=== PATIENT | female | born 1980 | race Caucasian/White ===

== ENCOUNTER 2016-08-04 18:08 | Emergency (ER) | payer BC ==
[2016-08-04 19:04] VITALS: BP 96/54
--- NOTE | 2016-08-04 19:45 | UC ---
Throat Pain/Nasal Sixto HPI - HPI Summary HPI Summary: Patient has had 1 month of sinus congsetion, chills and hot sweats. - History of Current Complaint Chief Complaint: UCGeneralIllness Stated Complaint: SINUSES Time Seen by Provider: 08/04/16 19:14 Hx Obtained From: Patient Hx Last Menstrual Period: ABLATION ?: No Onset/Duration: Gradual Onset, Lasting Weeks Severity: Severe Associated Signs & Symptoms: Positive: Dysphagia, Wheezing, Sinus Discomfort, Nasal Discharge, Fever - Epiglottits Risk Factors Epiglottis Risk Factors: Negative - Allergies/Home Medications Allergies/Adverse Reactions: Allergies Allergy/AdvReac Type Severity Reaction Status Date / Time Penicillins Allergy Intermediate See Comment Verified 11/25/12 21:11 Sulfa Antibiotics Allergy Swelling Verified 08/04/16 19:05 Of Face,Lips,& Throat Home Medications: Home Medications Famotidine TAB* [Pepcid 20 MG TAB*] 20 mg PO BID 08/04/16 [History Confirmed 06/21] Pseudoephedrine HCl [Sudafed Nasal Decongestan] 30 mg PO Q4H PRN 08/04/16 [ History Confirmed 08/04/16] guaiFENesin ER TAB [Mucinex*] 600 mg PO BID PRN 08/04/16 [History Confirmed 06/21] PMH/Surg Hx/FS Hx/Imm Hx Previously Healthy: Yes - Surgical History Surgical History: Yes Surgery Procedure, Year, and Place: 1 , tonsilectomy. ablation - Family History Known Family History: Positive: Hypertension, Diabetes, Renal Disease - Social History Alcohol Use: None Substance Use Type: None Smoking Status (MU): Never Smoked Tobacco Review of Systems Constitutional: Fever, Chills, Fatigue Skin: Negative Eyes: Negative ENT: Sore Throat, Ear Ache, Nasal Discharge Respiratory: Shortness Of Breath, Cough Cardiovascular: Negative Gastrointestinal: Negative Genitourinary: Negative Motor: Negative Neurovascular: Negative Musculoskeletal: Myalgia Neurological: Headache Psychological: Negative All Other Systems Reviewed And Are Negative: Yes Physical Exam Triage Information Reviewed: Yes Appearance: Well-Nourished, Ill-Appearing, Pain Distress Vital Signs: Initial Vital Signs Temp 99.6 F 08/04/16 19:00 Pulse 102 08/04/16 19:00 Resp 16 08/04/16 19:00 BP 96/54 08/04/16 19:00 Pulse Ox 99 08/04/16 19:00 Vital Signs Reviewed: Yes Eye Exam: Normal Eyes: Positive: Conjunctiva Inflamed ENT: Positive: Pharyngeal erythema - with posterior exudate, TM bulging, TM red Dental Exam: Normal Neck exam: Normal Neck: Positive: Supple, Nontender, No Lymphadenopathy Respiratory Exam: Normal Respiratory: Positive: Chest non-tender, Lungs clear, Normal breath sounds Cardiovascular Exam: Normal Cardiovascular: Positive: No Murmur, Pulses Normal, Tachycardia Abdominal Exam: Normal Abdomen Description: Positive: Nontender, No Organomegaly, Soft Bowel Sounds: Positive: Present Musculoskeletal Exam: Normal Musculoskeletal: Positive: Strength Intact, ROM Intact, No Edema Neurological Exam: Normal Neurological: Positive: Alert, Muscle Tone Normal Psychological Exam: Normal Skin: Positive: Other - face is flushed Throat Pain/Nasal Course/Dx - Course Course Of Treatment: hx obtained, exam performed, meds prescribed for sinusitis - Differential Dx/Diagnosis Differential Diagnosis/HQI/PQRI: Influenza, Laryngitis, Otitis Media, Pharyngitis, Sinusitis, Tonsillitis, URI Provider Diagnoses: sinusitis Discharge - Discharge Plan Condition: Stable Disposition: HOME Patient Education Materials: Sinusitis (ED) Additional Instructions: take the medication as prescribed. Get plenty of rest and increase fluid intake. ibuprofen and warm compresses to help allieviate sinus pressure.
[2016-08-04] MEDS ORDERED: Cephalexin CAP* 500 MG PO ONE (19:52)
== END 2016-08-04 20:11 | disposition home or self-care (01) ==
LOC: UCCORT 18:08
DX: J32.9 Chronic sinusitis, unspecified (principal); Z88.0 Allergy status to penicillin; Z88.2 Allergy status to sulfonamides
CPT/HCPCS: 99202; A9270-GY; G0463

== ENCOUNTER 2016-10-21 11:25 | Emergency (ER) | payer OTHER ==
[2016-10-21 12:15] VITALS: BP 109/78
--- NOTE | 2016-10-21 12:18 | UC ---
Throat Pain/Nasal Sixto HPI - HPI Summary HPI Summary: complaint of nasal congestion and cough non productive cough tenderness in face and forehead for the last 2 weeks bilateral ear pain frequent headaches mild sore throat intermittently denies fever and chills taking sudafed and mucinex and using nettipot 2xday without relief - History of Current Complaint Chief Complaint: UCRespiratory Stated Complaint: sinus complaint Time Seen by Provider: 10/21/16 12:14 Hx Obtained From: Patient Hx Last Menstrual Period: ABLATION - Allergies/Home Medications Allergies/Adverse Reactions: Allergies Allergy/AdvReac Type Severity Reaction Status Date / Time Penicillins Allergy Intermediate See Comment Verified 10/21/16 12:15 Ciprofloxacin Allergy Hives Verified 10/21/16 12:15 Sulfa Antibiotics Allergy Swelling Verified 10/21/16 12:15 Of Face,Lips,& Throat Home Medications: Home Medications Cetirizine* [ZyrTEC 10 MG TAB*] 10 mg PO DAILY 10/21/16 [History Confirmed 10/21] PMH/Surg Hx/FS Hx/Imm Hx Previously Healthy: Yes - seasonal allergies GI/ History: Gastroesophageal Reflux - Surgical History Surgical History: Yes Surgery Procedure, Year, and Place: 1 , tonsilectomy. ablation - Family History Known Family History: Positive: Hypertension, Diabetes, Renal Disease - Social History Occupation: Employed Full-time Lives: With Family Alcohol Use: None Substance Use Type: None Smoking Status (MU): Never Smoked Tobacco Review of Systems Constitutional: Negative Skin: Negative Eyes: Negative ENT: Sore Throat, Ear Ache, Nasal Discharge, Sinus Congestion, Sinus Pain/ Tenderness Respiratory: Cough Cardiovascular: Negative Gastrointestinal: Negative Genitourinary: Negative Motor: Negative Neurovascular: Negative Musculoskeletal: Negative Neurological: Negative Psychological: Negative All Other Systems Reviewed And Are Negative: Yes Physical Exam Triage Information Reviewed: Yes Appearance: No Pain Distress, Well-Nourished, Obese Vital Signs: Initial Vital Signs Temp 98.6 F 10/21/16 12:12 Pulse 92 10/21/16 12:12 Resp 16 10/21/16 12:12 BP 109/78 10/21/16 12:12 Pulse Ox 99 10/21/16 12:12 Vital Signs Reviewed: Yes Eyes: Positive: Conjunctiva Clear ENT: Positive: Pharyngeal erythema, Nasal congestion, Nasal drainage, TM bulging , Other: - frontal and maxillary sinus tenderness. Negative: TM red Neck: Positive: No Lymphadenopathy Respiratory: Positive: Lungs clear, Normal breath sounds, No respiratory distress Cardiovascular: Positive: RRR, No Murmur Abdomen Description: Positive: Nontender, Soft Bowel Sounds: Positive: Present Musculoskeletal Exam: Normal Neurological: Positive: Alert Psychological Exam: Normal Skin Exam: Normal Throat Pain/Nasal Course/Dx - Course Course Of Treatment: exam completed. will treat for sinusitis secondary to seasonal allergies- will rx for doxycycline and flonase- followup with PCP - Differential Dx/Diagnosis Provider Diagnoses: sinusitis. seasonal allergies Discharge - Discharge Plan Condition: Stable Disposition: HOME Prescriptions: DOXYcycline CAP(*) [DOXYcycline 100MG CAP(*)] 100 mg PO BID #20 cap Fluticasone NASAL SPRAY 50MCG* [Flonase NASAL SPRAY 50MCG*] 2 spray BOTH NARES DAILY #1 btl Patient Education Materials: Sinusitis (ED), Allergies (ED) Referrals: MARCIA Godoy [Primary Care Provider] - Additional Instructions: Please start antibiotic and flonase as directed Increase fluids and rest Take acetaminophen or ibuprofen for fever or pain Please review your discharge instructions. If your symptoms do not improve please call your primary care provider or return to urgent care.
== END 2016-10-21 13:07 | disposition home or self-care (01) ==
LOC: UCCORT 11:25
DX: J32.9 Chronic sinusitis, unspecified (principal); J30.2 Other seasonal allergic rhinitis; K21.9 Gastro-esophageal reflux disease without esophagitis; E66.9 Obesity, unspecified; Z88.1 Allergy status to other antibiotic agents; Z88.0 Allergy status to penicillin; Z88.2 Allergy status to sulfonamides
CPT/HCPCS: 99212; G0463

== ENCOUNTER 2016-12-25 11:02 | Emergency (ER) | payer OTHER ==
[2016-12-25 13:01] VITALS: BP 110/65
--- NOTE | 2016-12-25 13:24 | UC ---
Throat Pain/Nasal Sixto HPI - HPI Summary HPI Summary: Sinus congestion for several weeks. she has hx of sinusitis. she has been trying netti pot without help. now having sinus pain. - History of Current Complaint Chief Complaint: UCRespiratory Stated Complaint: SINUS Time Seen by Provider: 12/25/16 12:56 Hx Obtained From: Patient Hx Last Menstrual Period: ABLATION Onset/Duration: Gradual Onset, Lasting Weeks Severity: Moderate Cough: None Associated Signs & Symptoms: Positive: Sinus Discomfort, Nasal Discharge. Negative: Fever, Vomiting, Rash Related History: Seasonal Allergies - Epiglottits Risk Factors Epiglottis Risk Factors: Negative - Allergies/Home Medications Allergies/Adverse Reactions: Allergies Allergy/AdvReac Type Severity Reaction Status Date / Time Penicillins Allergy Intermediate See Comment Verified 12/25/16 12:56 Ciprofloxacin Allergy Hives Verified 12/25/16 12:56 Sulfa Antibiotics Allergy Swelling Verified 12/25/16 12:56 Of Face,Lips,& Throat PMH/Surg Hx/FS Hx/Imm Hx Previously Healthy: No - sinusitis. seasonal allergies. - Surgical History Surgical History: Yes Surgery Procedure, Year, and Place: 1 , tonsilectomy. ablation - Family History Known Family History: Positive: Hypertension, Diabetes, Renal Disease - Social History Lives: With Family Alcohol Use: None Substance Use Type: None Smoking Status (MU): Never Smoked Tobacco - Immunization History Most Recent Influenza Vaccination: Not the Season Review of Systems ENT: Sinus Congestion, Sinus Pain/Tenderness All Other Systems Reviewed And Are Negative: Yes Physical Exam Triage Information Reviewed: Yes Vital Signs: Initial Vital Signs Temp 98.1 F 12/25/16 12:55 Pulse 88 12/25/16 12:55 Resp 16 12/25/16 12:55 BP 110/65 12/25/16 12:55 Pulse Ox 100 12/25/16 12:55 Vital Signs Reviewed: Yes Eye Exam: Normal ENT: Positive: Pharynx normal, Nasal congestion, TMs normal. Negative: Pharyngeal erythema, Tonsillar swelling, Tonsillar exudate, Trismus Neck exam: Normal Respiratory Exam: Normal Cardiovascular Exam: Normal Abdominal Exam: Normal Musculoskeletal Exam: Normal Neurological Exam: Normal Psychological Exam: Normal Skin Exam: Normal Throat Pain/Nasal Course/Dx - Differential Dx/Diagnosis Provider Diagnoses: sinusitis Discharge - Discharge Plan Condition: Good Disposition: HOME Prescriptions: DOXYcycline CAP(*) [DOXYcycline 100MG CAP(*)] 100 mg PO BID #20 cap Patient Education Materials: Sinusitis (ED) Referrals: MARCIA Godoy [Primary Care Provider] - Additional Instructions: Continue nasal irrigation and start decongestants as well.
== END 2016-12-25 13:42 | disposition home or self-care (01) ==
LOC: UCCORT 11:02
DX: J32.9 Chronic sinusitis, unspecified (principal); Z88.1 Allergy status to other antibiotic agents; Z88.0 Allergy status to penicillin; Z88.2 Allergy status to sulfonamides
CPT/HCPCS: 99212; G0463

== ENCOUNTER 2017-01-20 16:41 | Emergency (ER) | payer BC, OTHER ==
--- NOTE | 2017-01-20 17:29 | UC ---
Complaint Female HPI <Newton Deras - Last Filed: 01/24/17 23:30> - HPI Summary HPI Summary: few days of dysuria some hematuria noted--no fevers nausea vomiting or back pain - History Of Current Complaint Hx Obtained From: Patient Hx Last Menstrual Period: ABLATION ?: No Onset/Duration: Sudden Onset, Lasting Days Timing: Constant Severity Initially: Mild Severity Currently: Mild Character: Burning Aggravating Factor(s): Urination Associated Signs And Symptoms: Positive: Negative <Paris Romero - Last Filed: 01/28/17 11:38> - History Of Current Complaint Chief Complaint: UCGU Stated Complaint: UTI COMPLAINT Time Seen by Provider: 01/20/17 17:28 - Allergies/Home Medications Allergies/Adverse Reactions: Allergies Allergy/AdvReac Type Severity Reaction Status Date / Time Penicillins Allergy Intermediate See Comment Verified 01/20/17 17:31 Ciprofloxacin Allergy Hives Verified 01/20/17 17:31 Sulfa Antibiotics Allergy Swelling Verified 01/20/17 17:31 Of Face,Lips,& Throat PMH/Surg Hx/FS Hx/Imm Hx Previously Healthy: No GI/ History: Gastroesophageal Reflux - Surgical History Surgical History: Yes Surgery Procedure, Year, and Place: 1 , tonsilectomy. ablation - Family History Known Family History: Positive: Hypertension, Diabetes, Renal Disease - Social History Occupation: Employed Full-time Lives: With Family Alcohol Use: None Substance Use Type: None Smoking Status (MU): Never Smoked Tobacco - Immunization History Most Recent Influenza Vaccination: Not the 2017/2017 Season <Paris Romero - Last Filed: 01/28/17 11:38> Review of Systems Constitutional: Negative Skin: Negative Eyes: Negative ENT: Negative Respiratory: Negative Cardiovascular: Negative Gastrointestinal: Negative Genitourinary: Negative, Dysuria, Hematuria Motor: Negative Neurovascular: Negative Musculoskeletal: Negative Neurological: Negative Psychological: Negative Is Patient Immunocompromised?: No All Other Systems Reviewed And Are Negative: Yes <Paris Romero - Last Filed: 01/28/17 11:38> Physical Exam Vital Signs: Initial Vital Signs Temp 97.9 F 01/20/17 17:27 Pulse 88 01/20/17 17:27 Resp 16 01/20/17 17:27 BP 110/70 01/20/17 17:27 Pulse Ox 100 01/20/17 17:27 <Newton Deras - Last Filed: 01/24/17 23:30> Triage Information Reviewed: Yes Appearance: Well-Appearing, No Pain Distress, Well-Nourished Vital Signs Reviewed: Yes Eye Exam: Normal Eyes: Positive: Conjunctiva Clear ENT Exam: Normal ENT: Positive: Normal ENT inspection, Hearing grossly normal. Negative: Nasal congestion, Nasal drainage, Trismus, Muffled/hoarse voice Dental Exam: Normal Neck exam: Normal Neck: Positive: Supple, Nontender Respiratory Exam: Normal Respiratory: Positive: Chest non-tender, No respiratory distress, No accessory muscle use Cardiovascular Exam: Normal Cardiovascular: Positive: RRR, Pulses Normal, Brisk Capillary Refill Abdominal Exam: Normal Abdomen Description: Positive: Nontender, No Organomegaly, Soft. Negative: CVA Tenderness (R), CVA Tenderness (L) Musculoskeletal Exam: Normal Musculoskeletal: Positive: Strength Intact, ROM Intact Neurological Exam: Normal Neurological: Positive: Alert, Muscle Tone Normal Psychological Exam: Normal Skin Exam: Normal <Paris Romero - Last Filed: 01/28/17 11:38> Diagnostics - Laboratory Diagnostic Studies Completed/Ordered: ua +2 blood, trace leukoesterase, u preg ( -) <Paris Romero - Last Filed: 01/28/17 11:38> Complaint Female Dx - Course Course Of Treatment: culture urine, increase fluids, kefle, pyridium, follow with pcp - Differential Dx/Diagnosis Differential Diagnosis/HQI/PQRI: , Renal Colic, Ureteral Stone, Urinary Tract Infection Provider Diagnoses: UTI <Paris Romero - Last Filed: 01/28/17 11:38> Discharge <Newton Deras - Last Filed: 01/24/17 23:30> <Paris Romero - Last Filed: 01/28/17 11:38> - Discharge Plan Condition: Stable Disposition: HOME Prescriptions: Cephalexin CAP* [Keflex CAP*] 500 mg PO TID #21 cap Phenazopyridine TAB* [Pyridium 100 mg TAB*] 100 mg PO TID PRN #9 tab PRN Reason: pain or burning with urination Patient Education Materials: Phenazopyridine (By mouth), Urinary Tract Infection in Women (ED) Referrals: MARCIA Godoy [Primary Care Provider] - 1 Week Progress Note - Progress Note Date of Service: 01/23/17 - neg urine culture can stop antibiotic cephalexin <Newton Deras - Last Filed: 01/24/17 23:30> - Progress Note Date of Service: 01/23/17 <Paris Romero - Last Filed: 01/28/17 11:38>
[2017-01-20 17:31] VITALS: BP 110/70
== END 2017-01-20 18:02 | disposition home or self-care (01) ==
LOC: UCCORT 16:41
DX: N39.0 Urinary tract infection, site not specified (principal); R31.9 Hematuria, unspecified; Z32.02 Encounter for pregnancy test, result negative; K21.9 Gastro-esophageal reflux disease without esophagitis; Z88.1 Allergy status to other antibiotic agents; Z88.0 Allergy status to penicillin; Z88.2 Allergy status to sulfonamides
CPT/HCPCS: 81003; 84702; 87086; 99212; G0463

== ENCOUNTER 2017-04-12 11:19 | Emergency (ER) | payer BC ==
[2017-04-12 12:03] VITALS: BP 98/65
--- NOTE | 2017-04-12 12:50 | UC ---
Throat Pain/Nasal Sixto HPI - HPI Summary HPI Summary: THREE WEEKS OF SINUS CONGESTION. FEVER. HEADACHES. HAD BEEN ON DOXYCYCLINE > 4WEEKS AGO FOR SINUS INFECTION SYMPTOMS IMPROVED BUT RETURNED AFTER STOPPING ANTIBIOTIC THERAPY. - History of Current Complaint Chief Complaint: UCRespiratory Stated Complaint: SINUS CONGESTION HEADACHE Time Seen by Provider: 04/12/17 12:02 Hx Obtained From: Patient, Family/Team Facilitator Hx Last Menstrual Period: unknown, ablation 3 years ago Onset/Duration: Gradual Onset, Lasting Weeks Severity: Moderate Pain Intensity: 0 Pain Scale Used: 0-10 Numeric Cough: Nonproductive Associated Signs & Symptoms: Positive: Hoarseness, Sinus Discomfort, Nasal Discharge, Fever - Epiglottits Risk Factors Epiglottis Risk Factors: Negative - Allergies/Home Medications Allergies/Adverse Reactions: Allergies Allergy/AdvReac Type Severity Reaction Status Date / Time Penicillins Allergy Intermediate See Comment Verified 04/12/17 12:03 Ciprofloxacin Allergy Hives Verified 04/12/17 12:03 Sulfa Antibiotics Allergy Swelling Verified 04/12/17 12:03 Of Face,Lips,& Throat PMH/Surg Hx/FS Hx/Imm Hx Previously Healthy: Yes - Surgical History Surgical History: Yes Surgery Procedure, Year, and Place: 1 , tonsilectomy. ablation - Family History Known Family History: Positive: Hypertension, Diabetes, Renal Disease - Social History Occupation: Employed Full-time Lives: With Family Alcohol Use: None Substance Use Type: None Smoking Status (MU): Never Smoked Tobacco - Immunization History Most Recent Influenza Vaccination: Not the 2016/2017 Season Review of Systems Constitutional: Negative Skin: Negative ENT: Nasal Discharge, Sinus Congestion, Sinus Pain/Tenderness Respiratory: Cough Cardiovascular: Negative Gastrointestinal: Negative Genitourinary: Negative Motor: Negative Neurovascular: Negative Musculoskeletal: Negative Neurological: Negative Psychological: Negative Is Patient Immunocompromised?: No All Other Systems Reviewed And Are Negative: Yes Physical Exam Triage Information Reviewed: Yes Appearance: No Pain Distress, Well-Nourished, Ill-Appearing - MILDLY Vital Signs: Initial Vital Signs Temp 98.2 F 04/12/17 12:00 Pulse 91 04/12/17 12:00 Resp 16 04/12/17 12:00 BP 98/65 04/12/17 12:00 Pulse Ox 99 04/12/17 12:00 Vital Signs Reviewed: Yes Eye Exam: Normal ENT: Positive: Pharynx normal, Nasal congestion, Nasal drainage, TM bulging, TM dull Dental Exam: Normal Neck: Positive: Supple, Nontender, Enlarged Nodes @ - BILATERAL ANTERIOR CERVICAL LN Respiratory Exam: Normal Respiratory: Positive: Chest non-tender, Lungs clear, Normal breath sounds, No respiratory distress, No accessory muscle use Cardiovascular Exam: Normal Cardiovascular: Positive: RRR, No Murmur, Pulses Normal, Brisk Capillary Refill Abdominal Exam: Normal Musculoskeletal Exam: Normal Musculoskeletal: Positive: Strength Intact, ROM Intact Neurological Exam: Normal Psychological Exam: Normal Skin Exam: Normal Throat Pain/Nasal Course/Dx - Differential Dx/Diagnosis Differential Diagnosis/HQI/PQRI: Mononucleosis, Peritonsillar Abscess, Pharyngitis, Sinusitis, Tonsillitis, URI Provider Diagnoses: SINUSITIS Discharge - Discharge Plan Condition: Stable Disposition: HOME Prescriptions: DOXYcycline CAP(*) [DOXYcycline 100MG CAP(*)] 100 mg PO BID #20 cap Patient Education Materials: Sinusitis (ED) Referrals: MARCIA Godoy [Primary Care Provider] -
== END 2017-04-12 12:40 | disposition home or self-care (01) ==
LOC: UCCORT 11:19
DX: J32.9 Chronic sinusitis, unspecified (principal); Z88.1 Allergy status to other antibiotic agents; Z88.0 Allergy status to penicillin; Z88.2 Allergy status to sulfonamides
CPT/HCPCS: 99212; G0463

== ENCOUNTER 2017-09-26 13:35 | Emergency (ER) | payer BC, OTHER ==
[2017-09-26 15:00] VITALS: BP 99/68
--- NOTE | 2017-09-26 15:08 | UC ---
Throat Pain/Nasal Sixto HPI - HPI Summary HPI Summary: 37 y/o female presents to the urgent care c/o left side sinus pain, nasal congestion w/ green nasal discharge and left ear pain and pressure for the past 2 week. Pt has tried to alleviate symptoms w/ OTC medications w/o any improvement. Pain is 6/10. Pt states also mild headache. Pt denies fever, SOB, chest pain, abdominal pain, N/V/D, dizziness. - History of Current Complaint Chief Complaint: UCGeneralIllness Stated Complaint: SINUS/EAR COMP Time Seen by Provider: 09/26/17 15:05 Hx Obtained From: Patient Hx Last Menstrual Period: unknown, ablation 3 years ago ?: No Onset/Duration: Gradual Onset, Lasting Weeks - 2 weeks, Still Present, Worse Since - 2 days Severity: Moderate Pain Intensity: 5 Pain Scale Used: 0-10 Numeric Cough: Nonproductive Associated Signs & Symptoms: Positive: Dysphagia, Sinus Discomfort, Nasal Discharge - Epiglottits Risk Factors Epiglottis Risk Factors: Negative - Allergies/Home Medications Allergies/Adverse Reactions: Allergies Allergy/AdvReac Type Severity Reaction Status Date / Time ciprofloxacin Allergy Hives Verified 09/26/17 15:01 Penicillins Allergy Anaphylatic Verified 09/26/17 15:01 Shock Sulfa (Sulfonamide Allergy Swelling Verified 09/26/17 15:01 Antibiotics) Of Face,Lips,& Throat Home Medications: Home Medications Fluticasone NASAL SPRAY 50MCG* [Flonase NASAL SPRAY 50MCG*] 2 spray BOTH NARES DAILY 09/26/17 [History Confirmed 09/26/17] PMH/Surg Hx/FS Hx/Imm Hx Previously Healthy: Yes GI/ History: Gastroesophageal Reflux Other GI/ History: Constipation - Surgical History Surgical History: Yes Surgery Procedure, Year, and Place: 1 , tonsilectomy. ablation. D&C - Family History Known Family History: Positive: Hypertension, Diabetes, Renal Disease - Social History Occupation: Employed Full-time Lives: With Family Alcohol Use: None Substance Use Type: None Smoking Status (MU): Never Smoked Tobacco - Immunization History Most Recent Influenza Vaccination: Not the 2017/2017 Season Review of Systems Constitutional: Negative Skin: Negative Eyes: Negative ENT: Ear Ache - left ear pain and pressure, Nasal Discharge, Sinus Congestion, Sinus Pain/Tenderness, Other - +PND Respiratory: Negative Cardiovascular: Negative Gastrointestinal: Negative Genitourinary: Negative Motor: Negative Neurovascular: Negative Musculoskeletal: Negative Neurological: Headache Psychological: Negative Is Patient Immunocompromised?: No All Other Systems Reviewed And Are Negative: Yes Physical Exam - Summary Physical Exam Summary: Vitals: reviewed General: Well developed, well-nourished female patient with NAD. Head and face: Normocephalic and atraumatic, Positive tenderness over the frontal and maxillary sinuses.. Eyes: PERRLA, EOMI x 2. Normal conjunctiva. No eye discharge. ENT: Ears and TM with normal limits. Nose: edematous and erythematous nasal mucosa with with yellowish discharge and erythematous mucosa. Pharynx with erythema, no exudate. Neck: Supple, no JVD, no carotid bruits and no lymphadenopathy. Lungs: clear, no rales, no rhonchi, no wheezes. CVS: RRR, S1 and S2 present no murmurs or gallops appreciated. Abdomen: soft nontender with positive bowel sounds. Extremities: no edema noted. Neuro: WNL. Skin: warm and dry Triage Information Reviewed: Yes Vital Signs: Initial Vital Signs Temp 98.1 F 09/26/17 14:56 Pulse 92 09/26/17 14:56 Resp 15 09/26/17 14:56 BP 99/68 09/26/17 14:56 Pulse Ox 98 09/26/17 14:56 Throat Pain/Nasal Course/Dx - Course Course Of Treatment: 37 y/o female presents to the urgent care c/o left side sinus pain, nasal congestion w/ green nasal discharge and left ear pain and pressure for the past 2 week. Pt has tried to alleviate symptoms w/ OTC medications w/o any improvement. Pain is 6/10. Pt states also mild headache. Pt denies fever, SOB, chest pain, abdominal pain, N/V/D, dizziness. Hx obtained. Pt w/ acute bacterial sinusitis on examination. - Differential Dx/Diagnosis Differential Diagnosis/HQI/PQRI: Pharyngitis, Sinusitis, URI, Other - bronchitis Provider Diagnoses: 1- Acute bacterial sinusitis Discharge - Discharge Plan Condition: Stable Prescriptions: DOXYcycline CAP(*) [DOXYcycline 100MG CAP(*)] 100 mg PO BID #20 cap Patient Education Materials: Sinusitis (ED) Referrals: [facility] [Primary Care Provider] - 3 Days Additional Instructions: 1- Please increase fluid intake and rest. take full course of antibiotic to avoid resistance 2-Continue using Flonase nasal spray as directed to help drain fluid. Also buy saline drops to clear sinuses 3-Continue taking Sudafed PO to alleviates sinus congestion 4-Return to the clinic or PCP in 3 days if symptoms do not improve for further management and treatment - Billing Disposition and Condition Condition: STABLE
== END 2017-09-26 15:47 | disposition home or self-care (01) ==
LOC: UCCORT 13:35
DX: J01.90 Acute sinusitis, unspecified (principal); R13.10 Dysphagia, unspecified; B96.89 Other specified bacterial agents as the cause of diseases classified elsewhere; Z88.1 Allergy status to other antibiotic agents; Z88.0 Allergy status to penicillin; Z88.2 Allergy status to sulfonamides; H92.02 Otalgia, left ear
CPT/HCPCS: 99212; G0463

== ENCOUNTER 2017-11-21 11:30 | Emergency (ER) | payer BC ==
--- OUTSIDE RECORDS SUMMARY | 2017-11-21 11:58 | XMS REPORT ---
:1980 External Reference #:[id number] Author Organization [employer] Address [address] [place] [address] Phone [phone] Care Team Providers Name Role Phone Heather Hanson FNP Primary Care Physician Unavailable Payers Type Date Identification Numbers Payment Provider Subscriber Commercial Policy Number: [id number] [facility] Bryan Oshea PayID: [id number] [address] [place] [address] Problems Description No Information Family History Date Family Member(s) Problem(s) Comments General Hypertension General Rheumatoid Arthritis Father No Current Problems Mother Hypertension Social History Type Date Description Comments Marital Status Lives With Spouse Occupation Teacher Cigarette Use Never Smoked Cigarettes ETOH Use Denies alcohol use Smoking Patient has never smoked Recreational Drug Use Denies Drug Use Exercise Type/Frequency Exercises regularly Allergies, Adverse Reactions, Alerts Date Description Reaction Status Severity Comments 11/04/2017 Penicillin Anaphylaxis, Urticaria active 11/04/2017 Sulfa Antibiotics Anaphylaxis, Urticaria active 11/04/2017 Ciprofloxacin Anaphylaxis, Urticaria active Medications Medication Date Status Form Strength Qnty SIG Indications Ordering Provider Tramadol HCL 11/18/19 Active Tablets 50mg 20tabs 1 by Donald 18 mouth [place], every 6 M.D. hours as needed pain Amitiza Active Capsules 24mcg TK 1 C PO Unknown 00 bid prn Famotidine Active Tablets 20mg TK 1 T PO Unknown 00 bid Medrol 11/11/19 Hx TBPK 4mg 21units take as M54.16 Donald 18 - directed. Abiola, 11/20/19 M.D. 18 Vital Signs Date Vital Result Comment 11/19/2017 Height 64 inches 5'4" Weight 204.00 lb BP Systolic Sitting 140 mmHg BP Diastolic Sitting 84 mmHg Pain Level 4 BMI (Body Mass Index) 35.0 kg/m2 11/10/2017 Height 64 inches 5'4" Weight 204.00 lb BP Systolic Sitting 118 mmHg BP Diastolic Sitting 78 mmHg Pain Level 5 BMI (Body Mass Index) 35.0 kg/m2 11/04/2017 Height 64 inches 5'4" Weight 210.00 lb BP Systolic Sitting 116 mmHg BP Diastolic Sitting 62 mmHg Respiratory Rate 16 /min Pain Level 7 BMI (Body Mass Index) 36.0 kg/m2 Results Description No Information Procedures Description No Information Encounters Type Date Location Provider CPT E/M Dx Office Visit 11/04/2017 [facility] [place] [address] M54.16 1:15p [facility] [place] Plan of Care 11/19/2017 - JACKY [id number] Other intervertebral disc degeneration, lumbar regionFollow up:Refer to Dr. García or Dr. Reynoso for possible SI joint injection or LESI.
--- OUTSIDE RECORDS SUMMARY | 2017-11-21 11:58 | XMS REPORT ---
:1980 External Reference #:[id number] Author Organization [employer] Address [address] [facility] [place] [address] Phone [phone] Care Team Providers Name Role Phone Heather Hanson FNP Primary Care Physician Unavailable Payers Type Date Identification Numbers Payment Provider Subscriber Commercial Policy Number: [id number] [facility] Bryan Oshea PayID: [id number] [address] [place] [address] Problems Description No Information Family History Date [...] Form Strength Qnty SIG Indications Ordering Provider Medrol Active TBPK 4mg 21units take as M54.16 Donald 8 Calista Tao M.D. Amitiza Active Capsules 24mcg TK 1 C Unknown 0 PO bid prn Famotidine Active Tablets 20mg TK 1 T Unknown 0 PO bid Vital Signs Date Vital Result Comment 11/10/2017 Height 64 inches 5'4" Weight 204.00 [...] 11/04/2017 [facility] [place] [address] M54.16 1:15p [facility] [place] Plan of Care 11/10/2017 - JACKY [id number] Radiculopathy, lumbar regionNew Medication: Medrol 4 mgNew Xrays:MRI Lumbar Spine W/OFollow up:After MRI
[2017-11-21 12:04] VITALS: BP 112/53
--- NOTE | 2017-11-21 12:09 | UC ---
Throat Pain/Nasal Sixto HPI - HPI Summary HPI Summary: 37 y/o female presents to the urgent care c/o left side sinus pain and congestion w/ yellowish discharge for the past 2.5 weeks. Sinus pain is the left side is 5/10 it so clogged that she feels a lot of pressure and +PND. Sometimes it is difficult to open it up. She has taken Sudafed PO, Flonase nasal spray, goyo pot w/o any relief of symptoms. She is PCN allergic. Pt denies fever, SOB, chest pain, abdominal pain, N/V/D. - History of Current Complaint Chief Complaint: UCRespiratory Stated Complaint: CONGESTION, COUGH, HEADACHE Time Seen by Provider: 11/21/17 12:08 Hx Obtained From: Patient Hx Last Menstrual Period: states no menses d/t having an ablasion in 2014 ?: No Onset/Duration: Gradual Onset, Lasting Weeks - 2.5 weeks, Worse Since - 2 days ago Severity: Moderate Pain Intensity: 5 Pain Scale Used: 0-10 Numeric Cough: None Associated Signs & Symptoms: Positive: Sinus Discomfort, Nasal Discharge Related History: Seasonal Allergies - Allergies/Home Medications Allergies/Adverse Reactions: Allergies Allergy/AdvReac Type Severity Reaction Status Date / Time ciprofloxacin Allergy Hives Verified 11/21/17 12:05 Penicillins Allergy Anaphylatic Verified 11/21/17 12:05 Shock Sulfa (Sulfonamide Allergy Swelling Verified 11/21/17 12:05 Antibiotics) Of Face,Lips,& Throat PMH/Surg Hx/FS Hx/Imm Hx Previously Healthy: Yes GI/ History: Gastroesophageal Reflux Other GI/ History: Constipation - Surgical History Surgical History: Yes Surgery Procedure, Year, and Place: . tonsilectomy. ablation. D&C - Family History Known Family History: Positive: Hypertension, Diabetes, Renal Disease - Social History Occupation: Employed Full-time Lives: With Family Alcohol Use: None Substance Use Type: None Smoking Status (MU): Never Smoked Tobacco - Immunization History Most Recent Influenza Vaccination: Not the 2017/2017 Season Review of Systems Constitutional: Negative Skin: Negative Eyes: Negative ENT: Nasal Discharge, Sinus Congestion, Sinus Pain/Tenderness Respiratory: Negative Cardiovascular: Negative Gastrointestinal: Negative Genitourinary: Negative Motor: Negative Neurovascular: Negative Musculoskeletal: Negative Neurological: Headache Psychological: Negative Is Patient Immunocompromised?: No All Other Systems Reviewed And Are Negative: Yes Physical Exam - Summary Physical Exam Summary: Vitals: reviewed General: Well developed, well-nourished female patient with NAD. Head and face: Normocephalic and atraumatic, Positive tenderness over the frontal and maxillary sinuses..LF>RT Eyes: PERRLA, EOMI x 2. Normal conjunctiva. No eye discharge. ENT: Ears and TM with normal limits. Nose: edematous and erythematous nasal mucosa with with yellowish discharge and erythematous mucosa. Pharynx with mild erythema, no exudate. Neck: Supple, no JVD, no carotid bruits and no lymphadenopathy. Lungs: clear, no rales, no rhonchi, no wheezes. CVS: RRR, S1 and S2 present no murmurs or gallops appreciated. Abdomen: soft nontender with positive bowel sounds. Extremities: no edema noted. Neuro: WNL. Skin: warm and dry Triage Information Reviewed: Yes Vital Signs: Initial Vital Signs Temp 98.4 F 11/21/17 11:57 Pulse 115 11/21/17 11:57 Resp 16 11/21/17 11:57 BP 112/53 11/21/17 11:57 Pulse Ox 99 11/21/17 11:57 Throat Pain/Nasal Course/Dx - Course Course Of Treatment: 37 y/o female presents to the urgent care c/o left side sinus pain and congestion w/ yellowish discharge for the past 2.5 weeks. Sinus pain is the left side is 5/10 it so clogged that she feels a lot of pressure and +PND. Sometimes it is difficult to open it up. She has taken Sudafed PO, Flonase nasal spray, goyo pot w/o any relief of symptoms. She is PCN allergic. Pt denies fever, SOB, chest pain, abdominal pain, N/V/D. Hx obtained. Pt w/ acute bacterial sinusitis on examination. Pt with more than 2 weeks of symptoms getting worse. PT PCN allergic. Pt Rx Doxycycline PO and advised to continue flonase nasal spray and Sudafed PO. Discharge instructions explained to Pt. Advised to Return to the clinic or PCP if symptoms do not improve.Pt understood and agreed with plan of care. - Differential Dx/Diagnosis Differential Diagnosis/HQI/PQRI: Laryngitis, Pharyngitis, Sinusitis, Tonsillitis , URI Provider Diagnoses: 1- Acute bacterial sinusitis Discharge - Sign-Out/Discharge Documenting (check all that apply): Patient Departure - D/C home - Discharge Plan Condition: Stable Disposition: HOME Prescriptions: DOXYcycline CAP(*) [DOXYcycline 100MG CAP(*)] 100 mg PO BID #20 cap Patient Education Materials: Sinusitis (ED) Referrals: Mackenzie Serrano-MD Gaston [Primary Care Provider] - 3 Days Additional Instructions: 1- Please increase fluid intake and rest. take full course of antibiotic to avoid resistance 2-Continue using Flonase as directed to help drain fluid. Also buy saline drops to clear sinuses 3-Continue Taking Sudafed to alleviates sinus congestion 4-Return to the clinic or PCP 3 days if symptoms do not improve for further management and treatment - Billing Disposition and Condition Condition: STABLE Disposition: Home
== END 2017-11-21 12:26 | disposition home or self-care (01) ==
LOC: UCCORT 11:30
DX: J01.90 Acute sinusitis, unspecified (principal); B96.89 Other specified bacterial agents as the cause of diseases classified elsewhere; Z88.0 Allergy status to penicillin; Z88.1 Allergy status to other antibiotic agents; Z88.2 Allergy status to sulfonamides
CPT/HCPCS: 99212; G0463

== ENCOUNTER 2018-01-29 12:05 | Emergency (ER) | payer OTHER ==
[2018-01-29 14:25] VITALS: BP 97/73
--- NOTE | 2018-01-29 14:47 | UC ---
Throat Pain/Nasal Sixto HPI - HPI Summary HPI Summary: 2 weeks of URI symptoms with hx of allergies and past sinus infections, last treated about 4 or 5 months ago. Progressive malaise, facial pain, postnasal drainage, with some activation of wheeze. Using flonase and occasional albuterol , daily antihistamine. NO fever. + headache and malaise. - History of Current Complaint Chief Complaint: UCGeneralIllness Stated Complaint: CONGESTION,HEADACHE,SINUSES Time Seen by Provider: 01/29/18 14:32 Hx Obtained From: Patient Hx Last Menstrual Period: states no menses d/t having an ablasion in 2014 Onset/Duration: Gradual Onset, Lasting Weeks - 2 Severity: Moderate Pain Intensity: 7 Cough: Nonproductive Associated Signs & Symptoms: Positive: Wheezing, Sinus Discomfort Related History: Seasonal Allergies - Epiglottits Risk Factors Epiglottis Risk Factors: Negative - Allergies/Home Medications Allergies/Adverse Reactions: Allergies Allergy/AdvReac Type Severity Reaction Status Date / Time ciprofloxacin Allergy Hives Verified 01/29/18 14:24 Penicillins Allergy Anaphylatic Verified 01/29/18 14:24 Shock Sulfa (Sulfonamide Allergy Swelling Verified 01/29/18 14:24 Antibiotics) Of Face,Lips,& Throat Home Medications: Home Medications Fluticasone NASAL SPRAY 50MCG* [Flonase NASAL SPRAY 50MCG*] 2 spray BOTH NARES DAILY 01/29/18 [History Confirmed 01/29/18] PMH/Surg Hx/FS Hx/Imm Hx - Additional Past Medical History Additional PMH: being treated at pain clinic for subacute back pain, has been taking tramadol x 4 weeks. - Surgical History Surgical History: Yes Surgery Procedure, Year, and Place: . tonsilectomy. ablation. D&C - Family History Known Family History: Positive: Hypertension, Diabetes, Renal Disease - Social History Occupation: Employed Part-time Alcohol Use: None Substance Use Type: None Smoking Status (MU): Never Smoked Tobacco - Immunization History Most Recent Influenza Vaccination: Not the Season Review of Systems Constitutional: Fatigue ENT: Ear Ache, Sinus Congestion, Sinus Pain/Tenderness Respiratory: Cough Gastrointestinal: Nausea Neurological: Headache Is Patient Immunocompromised?: No All Other Systems Reviewed And Are Negative: Yes Physical Exam Triage Information Reviewed: Yes Appearance: Ill-Appearing - looks mildly unwell and fatigued. Vital Signs: Initial Vital Signs Temp 98.8 F 01/29/18 14:19 Pulse 105 01/29/18 14:19 Resp 17 01/29/18 14:19 BP 97/73 01/29/18 14:19 Pulse Ox 100 01/29/18 14:19 Eyes: Positive: Conjunctiva Clear ENT: Positive: Pharynx normal, TM dull - on right Neck: Positive: Supple, Nontender, No Lymphadenopathy Respiratory: Positive: Lungs clear, Normal breath sounds Cardiovascular: Positive: RRR, No Murmur Neurological Exam: Normal Psychological Exam: Normal Skin Exam: Normal Throat Pain/Nasal Course/Dx - Course Course Of Treatment: doxycycline for acute sinusitis. - Differential Dx/Diagnosis Differential Diagnosis/HQI/PQRI: Laryngitis, Pharyngitis, Sinusitis, Tonsillitis , URI Provider Diagnoses: right maxillary and frontal sinusitis. Discharge - Sign-Out/Discharge Documenting (check all that apply): Patient Departure All imaging exams completed and their final reports reviewed: No Studies - Discharge Plan Condition: Stable Disposition: HOME Prescriptions: DOXYcycline CAP(*) [DOXYcycline 100MG CAP(*)] 100 mg PO BID #20 cap Patient Education Materials: Sinusitis (ED) Referrals: Sandor Serrano MD [Primary Care Provider] - Additional Instructions: Continue flonase and symptomatic treatment. You should see improvement in the next 3 to 4 days with addition of the antibiotic. - Billing Disposition and Condition Condition: STABLE Disposition: Home
== END 2018-01-29 15:06 | disposition home or self-care (01) ==
LOC: UCCORT 12:05
DX: J32.0 Chronic maxillary sinusitis (principal); J32.1 Chronic frontal sinusitis; Z88.1 Allergy status to other antibiotic agents; Z88.0 Allergy status to penicillin
CPT/HCPCS: 99212; G0463

== ENCOUNTER 2018-07-07 15:20 | Emergency (ER) | payer BC ==
[2018-07-07 16:56] VITALS: BP 111/68
--- NOTE | 2018-07-07 17:09 | UC ---
UC General HPI - HPI Summary HPI Summary: 1. worsening sinus pain, pressure and congestion and now some cough with congestion x4 weeks. hx sinusitis and this is the same. 2. urinary frequency/burning x 4 days. no fever or abdominal pain. - History of Current Complaint Chief Complaint: UCGeneralIllness Stated Complaint: SINUS COMPLAINT,URINARY Time Seen by Provider: 07/07/18 16:51 Hx Obtained From: Patient Hx Last Menstrual Period: 2015 ablation Onset/Duration: Gradual Onset Timing: Constant Pain Intensity: 5 Associated Signs & Symptoms: Negative: Abdominal Pain, Fever - Allergy/Home Medications Allergies/Adverse Reactions: Allergies Allergy/AdvReac Type Severity Reaction Status Date / Time ciprofloxacin Allergy Hives Verified 07/07/18 16:56 Penicillins Allergy Anaphylatic Verified 07/07/18 16:56 Shock Sulfa (Sulfonamide Allergy Swelling Verified 07/07/18 16:56 Antibiotics) Of Face,Lips,& Throat PMH/Surg Hx/FS Hx/Imm Hx - Additional Past Medical History Additional PMH: back pain GI/ History: Gastroesophageal Reflux - Surgical History Surgical History: Yes Surgery Procedure, Year, and Place: . tonsilectomy. ablation. D&C - Family History Known Family History: Positive: Hypertension, Diabetes, Renal Disease - Social History Lives: With Family Alcohol Use: None Substance Use Type: None Smoking Status (MU): Never Smoked Tobacco - Immunization History Most Recent Influenza Vaccination: Not the 2016/2017 Season Vaccination Up to Date: Yes Review of Systems All Other Systems Reviewed And Are Negative: Yes ENT: Positive: Nasal Discharge, Sinus Congestion, Sinus Pain/Tenderness Genitourinary: Positive: Dysuria, Frequency, Urgency Physical Exam Triage Information Reviewed: Yes Appearance: Well-Appearing Vital Signs: Initial Vital Signs Temp 97.5 F 07/07/18 16:53 Pulse 101 07/07/18 16:53 Resp 16 07/07/18 16:53 BP 111/68 07/07/18 16:53 Pulse Ox 100 07/07/18 16:53 Vital Signs Reviewed: Yes Eyes: Positive: Conjunctiva Clear ENT: Positive: Pharynx normal, Nasal congestion, TMs normal, Sinus tenderness. Negative: Nasal drainage Neck: Positive: Supple, Nontender, No Lymphadenopathy Respiratory: Positive: Lungs clear, Normal breath sounds Cardiovascular: Positive: RRR, No Murmur Abdomen Description: Positive: Nontender, No Organomegaly, Soft. Negative: CVA Tenderness (R), CVA Tenderness (L), Distended, Guarding Bowel Sounds: Positive: Present Musculoskeletal: Positive: ROM Intact Neurological: Positive: Alert Psychological: Positive: Normal Response To Family, Age Appropriate Behavior Skin Exam: Normal Course/Dx - Course Course Of Treatment: u/a=1+ ketones, trace lysed blood - Diagnoses Provider Diagnosis: Sinusitis, Dysuria Discharge - Sign-Out/Discharge Documenting (check all that apply): Patient Departure All imaging exams completed and their final reports reviewed: No Studies - Discharge Plan Condition: Stable Disposition: HOME Prescriptions: DOXYcycline CAP(*) [DOXYcycline 100MG CAP(*)] 100 mg PO BID 10 Days #20 cap Patient Education Materials: Sinusitis (ED), Dysuria (ED) Referrals: MARCIA Godoy [Medical Doctor] - 7 Days - Billing Disposition and Condition Condition: STABLE Disposition: Home - Attestation Statements Provider Attestation: Per institutional requirements, I have reviewed the chart, however, I was not consulted specifically or made aware of this patient by the midlevel provider. I did not personally evaluate, interact with , or disposition this patient.
== END 2018-07-07 17:20 | disposition home or self-care (01) ==
LOC: UCCORT 15:20
DX: J32.9 Chronic sinusitis, unspecified (principal); R30.0 Dysuria; Z88.0 Allergy status to penicillin; Z88.1 Allergy status to other antibiotic agents; Z88.2 Allergy status to sulfonamides
CPT/HCPCS: 81003; 87086; 99212; G0463

== ENCOUNTER 2019-03-09 13:37 | Emergency (ER) | payer BC ==
--- NOTE | 2019-03-09 14:15 | UC ---
Respiratory Complaint HPI - HPI Summary HPI Summary: 38 yo female presents with URI symptoms. She tells me that for the past 2 weeks she has had a dry cough and sore throat. She has not been taking anything OTC for her symptoms. She states that she has chronic back pain and thinks that her coughing is flaring this up. She does notice some wheezing at times. Denies current smoking. Has felt hot/cold, but has not taken her temperature. Denies SOB, chest pain, abdominal pain, n/v. - History of Current Complaint Stated Complaint: ST,LEI,COUGH Time Seen by Provider: 03/09/19 14:15 Hx Last Menstrual Period: 2015 ablation Onset/Duration: Gradual Onset Severity Initially: Moderate Severity Currently: Moderate Pain Intensity: 6 Pain Scale Used: 0-10 Numeric - Allergies/Home Medications Allergies/Adverse Reactions: Allergies Allergy/AdvReac Type Severity Reaction Status Date / Time ciprofloxacin Allergy Hives Verified 03/09/19 14:35 Penicillins Allergy Anaphylatic Verified 03/09/19 14:35 Shock Sulfa (Sulfonamide Allergy Swelling Verified 03/09/19 14:35 Antibiotics) Of Face,Lips,& Throat PMH/Surg Hx/FS Hx/Imm Hx - Additional Past Medical History Additional PMH: IBS Chronic back pain - Surgical History Surgical History: Yes Surgery Procedure, Year, and Place: . tonsilectomy. ablation. D&C - Family History Known Family History: Positive: Hypertension, Diabetes, Renal Disease - Social History Occupation: Employed Full-time Lives: With Family Alcohol Use: None Substance Use Type: None Smoking Status (MU): Never Smoked Tobacco - Immunization History Most Recent Influenza Vaccination: Not the 2016/2017 Season Vaccination Up to Date: Yes Review of Systems All Other Systems Reviewed And Are Negative: No Constitutional: Positive: Negative Skin: Positive: Negative Eyes: Positive: Negative ENT: Positive: Sore Throat Respiratory: Positive: Cough Cardiovascular: Positive: Negative Gastrointestinal: Positive: Negative Neurological: Positive: Negative Psychological: Positive: Negative Physical Exam - Summary Physical Exam Summary: GENERAL: NAD. WDWN. No pain distress. SKIN: No rashes, sores, lesions, or open wounds. HEENT: Head: AT/NC Eyes: EOM intact. Conjunctiva clear without inflammation or discharge. Ears: Hearing grossly normal. TMs intact, no bulging, erythema, or edema. Nose: Nasal mucosa pink and moist. NTTP maxillary and frontal sinus. Throat: Posterior oropharynx without exudates, erythema, or tonsillar enlargement. Uvula midline. NECK: Supple. Nontender. No lymphadenopathy. CHEST: CTAB. No accessory muscle use. Breathing comfortably and in no distress. CV: RRR. Pulses intact. Cap refill <2seconds NEURO: Alert. PSYCH: Age appropriate behavior. Triage Information Reviewed: Yes Vital Signs: Vital Signs: Temp Pulse Resp BP Pulse Ox 98.8 F 113 15 99/70 99 03/09/19 14:36 03/09/19 14:36 03/09/19 14:36 03/09/19 14:36 03/09/19 14:36 Vital Signs Reviewed: Yes Respiratory Course/Dx - Course Course Of Treatment: Discussed viral vs bacterial causes of URI with pt and she prefers to be on anbx at this time. Will also rx for prednisone to help her, likely, bronchitis symptoms - Differential Dx/Diagnosis Provider Diagnosis: URI (upper respiratory infection) Discharge ED - Sign-Out/Discharge Documenting (check all that apply): Patient Departure All imaging exams completed and their final reports reviewed: No Studies - Discharge Plan Condition: Stable Disposition: HOME Prescriptions: DOXYcycline CAP(*) [DOXYcycline 100MG CAP(*)] 100 mg PO BID #14 cap predniSONE TAB* [Deltasone 20 MG TAB*] 40 mg PO DAILY #10 tab Patient Education Materials: Upper Respiratory Infection (ED) Referrals: No Primary Care Phys,NOPCP [Primary Care Provider] - Additional Instructions: If you develop a fever, shortness of breath, chest pain, new or worsening symptoms - please call your PCP or go to the ED immediately. - Billing Disposition and Condition Condition: STABLE Disposition: Home
[2019-03-09 14:40] VITALS: BP 99/70
== END 2019-03-09 15:04 | disposition home or self-care (01) ==
LOC: UCCORT 13:37
DX: J06.9 Acute upper respiratory infection, unspecified (principal); R06.2 Wheezing; G89.29 Other chronic pain; M54.9 Dorsalgia, unspecified; Z88.0 Allergy status to penicillin; Z88.1 Allergy status to other antibiotic agents; Z88.2 Allergy status to sulfonamides
CPT/HCPCS: 99212; G0463

== ENCOUNTER 2019-04-23 12:42 | Emergency (ER) | payer BC ==
[2019-04-23 14:46] VITALS: BP 113/80
--- NOTE | 2019-04-23 15:04 | UC ---
Throat Pain/Nasal Sixto HPI - HPI Summary HPI Summary: 39-year-old woman comes in with a chief complaint of 3 weeks of upper respiratory tract infection symptoms. No fevers measured. Has had yellow rhinorrhea is and sinus pressure. She has left ear pain is getting worse. Does have some congestion in her upper chest and throat with a mild sore throat. She's tried various azgl-xaq-nancnos medicines which to help some but overall she is been getting worse instead of getting better. - History of Current Complaint Chief Complaint: UCGeneralIllness Stated Complaint: EAR COMPLAINT Time Seen by Provider: 04/23/19 14:50 Hx Last Menstrual Period: 2015 ablation Pain Intensity: 6 - Allergies/Home Medications Allergies/Adverse Reactions: Allergies Allergy/AdvReac Type Severity Reaction Status Date / Time ciprofloxacin Allergy Hives Verified 04/23/19 14:46 Penicillins Allergy Anaphylatic Verified 04/23/19 14:46 Shock Sulfa (Sulfonamide Allergy Swelling Verified 04/23/19 14:46 Antibiotics) Of Face,Lips,& Throat PMH/Surg Hx/FS Hx/Imm Hx Previously Healthy: Yes - Surgical History Surgical History: Yes Surgery Procedure, Year, and Place: . tonsilectomy. ablation. D&C - Family History Known Family History: Positive: Hypertension, Diabetes, Renal Disease - Social History Alcohol Use: None Substance Use Type: None Smoking Status (MU): Never Smoked Tobacco - Immunization History Most Recent Influenza Vaccination: Not the 2016/2017 Season Vaccination Up to Date: Yes Review of Systems All Other Systems Reviewed And Are Negative: Yes Constitutional: Positive: Other - see hpi Skin: Positive: Negative Eyes: Positive: Negative ENT: Positive: Sore Throat, Ear Ache, Nasal Discharge, Sinus Congestion, Sinus Pain/Tenderness Respiratory: Positive: Other - see hpi Cardiovascular: Positive: Negative Gastrointestinal: Positive: Negative Neurovascular: Positive: Negative Musculoskeletal: Positive: Negative Neurological: Positive: Negative Psychological: Positive: Negative Is Patient Immunocompromised?: No Physical Exam Triage Information Reviewed: Yes Appearance: No Pain Distress, Well-Nourished, Ill-Appearing - mild Vital Signs: Initial Vital Signs Temp 98.8 F 04/23/19 14:42 Pulse 115 04/23/19 14:42 Resp 18 04/23/19 14:42 BP 113/80 04/23/19 14:42 Pulse Ox 99 04/23/19 14:42 Vital Signs Reviewed: Yes Eye Exam: Normal Eyes: Positive: Conjunctiva Clear ENT: Positive: Pharyngeal erythema, Nasal congestion, Nasal drainage, TM dull - left Neck: Positive: Supple Respiratory: Positive: Lungs clear, Normal breath sounds, No respiratory distress Cardiovascular: Positive: RRR Musculoskeletal: Positive: Strength Intact, ROM Intact Neurological: Positive: Alert, Muscle Tone Normal Psychological: Positive: Normal Response To Family, Age Appropriate Behavior Skin Exam: Normal Throat Pain/Nasal Course/Dx - Differential Dx/Diagnosis Provider Diagnosis: Sinusitis, Left serous otitis media Discharge ED - Sign-Out/Discharge Documenting (check all that apply): Patient Departure All imaging exams completed and their final reports reviewed: No Studies - Discharge Plan Condition: Stable Disposition: HOME Prescriptions: DOXYcycline CAP(*) [DOXYcycline 100MG CAP(*)] 100 mg PO BID #20 cap Patient Education Materials: Sinusitis (ED), Serous Otitis Media (ED) Referrals: [facility] [facility] [Outside] Additional Instructions: FOLLOW UP WITH YOUR DOCTOR IF NOT COMPLETELY IMPROVED. GET REEVALUATED SOONER IF NOT IMPROVING OR WORSE OR ANY QUESTIONS OR CONCERNS. - Billing Disposition and Condition Condition: STABLE Disposition: Home
== END 2019-04-23 15:11 | disposition home or self-care (01) ==
LOC: UCCORT 12:42
DX: H65.92 Unspecified nonsuppurative otitis media, left ear (principal); J32.9 Chronic sinusitis, unspecified; Z88.0 Allergy status to penicillin; Z88.1 Allergy status to other antibiotic agents; Z88.2 Allergy status to sulfonamides
CPT/HCPCS: 99212; G0463